=== PATIENT | female | born 1965 | race Caucasian/White ===

== ENCOUNTER → 2021-12-19 | Outpatient (CLI) | payer OTHER ==
[~2021-12-19] MED LIST: ABILIFY 2 MG2 M1 PO; ACETAMINOPHEN325 M1 PO; CELEXA10 MG PO; IBUPROFEN 200200 M1 PO; NEURONTIN 300300 M1 PO; PAXIL10 MG PO; ULTRAM 50MG TAB50 MG PO; WELLBUTRIN XL300 MG PO
== END ==
LOC: M.CT 07:52
PROVIDERS: ATTEND Nurse Practitioner Family
DX: Z13.6 Encounter for screening for cardiovascular disorders (principal)